=== PATIENT | male | born 1965 | race Caucasian/White ===

== ENCOUNTER → 2016-11-16 | Outpatient (CLI) | payer BC, OTHER | LOC: FIMAGING 07:35 | PROVIDERS: ATTEND Internal Medicine | DX: R10.11 Right upper quadrant pain (principal) ==

== ENCOUNTER → 2018-12-22 | Outpatient (CLI) | payer BC | LOC: FIMAGING 10:58 | PROVIDERS: ATTEND Physician Assistant | DX: M19.071 Primary osteoarthritis, right ankle and foot (principal) ==